=== PATIENT | female | born 1940 | race Asian ===

== ENCOUNTER 2017-10-23 03:23 | Emergency (ER) | payer OTHER ==
[~2017-10-23] VITALS: Ht 154.9 cm; Wt 67.0 kg
[~2017-10-23 03:23] MED LIST: AMLO-512 PO; ASPI-556 PO; CARV12 PO; INSU100V SQ; LORA10TA7 PO; LOSA1TAB40 PO; METF850T2 PO; ROSU40 PO; SITA100 PO
[2017-10-23] MEDS ORDERED: PROMVCC5L PO (03:30)
[2017-10-23] MEDS ORDERED: OSEL75 PO (03:30)
[2017-10-23] MEDS ORDERED: VITAD1000 PO (03:30)
[2017-10-23] MEDS ORDERED: ONDANSETRON HCL 4 MG/2 ML VIAL IVP ONE (03:45)
[2017-10-23] MEDS ORDERED: SODIUM CHLORIDE 0.9% 1,000 ML IV ONE (03:45)
[2017-10-23 04:06] LABS: BASOPHILS % (AUTO) 0.7 % (0.0-2.0); EOSINOPHILS % (AUTO) 0.6 % (1.0-6.0); HEMATOCRIT 35.2 % (36-46); HEMOGLOBIN 11.8 g/dL (12.0-16.0); LYMPHOCYTES # (AUTO) 2.6 K/uL (1.0-4.8); MEAN CORPUSCULAR HEMOGLOBIN 28.5 pg (26.0-34.0); MEAN CORPUSCULAR HGB CONC 33.4 G/dL (31.0-37.0); MEAN CORPUSCULAR VOLUME 86 fL (80-100); MONOCYTES # (AUTO) 2.4 K/uL (0.1-1.0); MONOCYTES % (AUTO) 14.1 % (2.0-9.0); NEUTROPHILS # (AUTO) 11.9 K/uL (1.8-7.7); NEUTROPHILS % (AUTO) 69.6 % (40.0-70.0); PLATELET COUNT (AUTO) 325 K/uL (150-450); RED BLOOD CELL COUNT(AUTO) 4.12 MIL/uL (4.00-5.20); RED CELL DISTRIBUTION WIDTH 13.9 % (11.5-14.5)
[2017-10-23 04:12] LABS: CALCIUM, TOTAL 9.2 mg/dL (8.8-10.5); CREATININE 1.44 mg/dL (0.60-1.30)
[2017-10-23 04:18] LABS: ALBUMIN 3.2 g/dL (3.4-5.0); BILIRUBIN,TOTAL 0.7 mg/dL (0.1-1.0)
[2017-10-23] MEDS ORDERED: IODIXANOL 320 MG/ML 100 ML VIAL ONE (04:25)
[2017-10-23] MEDS ORDERED: SODIUM CHLORIDE 0.9% 100 ML ONE (04:26)
[2017-10-23 05:19] VITALS: BP 122/62
[2017-10-23 05:39] LABS: APPEARANCE,URINE CLEAR (CLEAR); BILIRUBIN,URINE NEGATIVE (NEGATIVE); GLUCOSE, URINE (UA) NEGATIVE (NEGATIVE); KETONES,URINE NEGATIVE (NEGATIVE); LEUKOCYTE ESTERASE ,URINE NEGATIVE (NEGATIVE); NITRATE,URINE NEGATIVE (NEGATIVE); OCCULT BLOOD,URINE TRACE (NEGATIVE); PROTEIN,URINE SEE CONFIRM (NEGATIVE); UROBILINOGEN,URINE 0.2 mg/dL (<=1.0)
[2017-10-23 05:48] LABS: BACTERIA,URINE Few /HPF (None Seen); RBC,URINE 0-2 /HPF (0-2); SQUAMOUS EPITHELIAL CELL,UR Few /LPF (None Seen); SULFOSALICYLIC ACID,URINE 1+ (Negative); WBC,URINE None Seen /HPF (0-5)
[2017-10-23 14:05] LABS: GLUCOSE,POINT OF CARE 124 MG/DL (70-110)
== END 2017-10-23 06:12 | disposition home or self-care (01) ==
LOC: EMS 03:23
DX: K52.9 Noninfective gastroenteritis and colitis, unspecified (principal); I10 Essential (primary) hypertension; E11.9 Type 2 diabetes mellitus without complications; Z79.4 Long term (current) use of insulin
CPT/HCPCS: 36415; 74177; 80053; 81001; 82962; 83690; 84484; 85025; 93005; 96361; 96374; 99285; J2405; J7030; J7050; Q9967

== ENCOUNTER 2018-06-15 08:44 | Emergency (ER) | payer OTHER ==
[~2018-06-15] VITALS: Ht 157.5 cm; Wt 70.5 kg
[~2018-06-15 08:44] MED LIST changes: +METF-445 PO; -METF850T2 PO; +OSEL75 PO; +PROMVCC5L PO; +VITAD1000 PO
[2018-06-15 08:58] LABS: GLUCOSE,POINT OF CARE 298 MG/DL (70-110)
[2018-06-15] MEDS ORDERED: TraMADol HCL 50 MG TABLET PO ONE (09:45)
[2018-06-15 11:32] VITALS: BP 122/76
== END 2018-06-15 11:33 | disposition home or self-care (01) ==
LOC: EMS 08:46
DX: M25.561 Pain in right knee (principal); E11.9 Type 2 diabetes mellitus without complications; I10 Essential (primary) hypertension; Z79.4 Long term (current) use of insulin; Z79.82 Long term (current) use of aspirin; Z79.84 Long term (current) use of oral hypoglycemic drugs

== ENCOUNTER 2021-01-03 10:54 | Emergency (ER) | payer MEDICARE, MEDICAID ==
[~2021-01-03] VITALS: Ht 154.9 cm; Wt 63.6 kg
[~2021-01-03 10:54] MED LIST changes: +AMLO-258 PO; -AMLO-512 PO; +CHOL100018 PO; -VITAD1000 PO
[2021-01-03] MEDS ORDERED: LOSA25TA21 PO (11:00)
[2021-01-03] MEDS ORDERED: HYDR50TA36 PO (11:00)
[2021-01-03] MEDS ORDERED: SEMA0.25 SQ (11:00)
[2021-01-03] MEDS ORDERED: INSU100I24 SQ (11:01)
[2021-01-03] MEDS ORDERED: INSNOV SQ (11:01)
[2021-01-03 11:53] LABS: GLUCOSE,POINT OF CARE 263 MG/DL (70-110)
[2021-01-03 12:01] LABS: BASOPHILS % (AUTO) 0.7 % (0.0-2.0); EOSINOPHILS % (AUTO) 0.7 % (1.0-6.0); HEMOGLOBIN 11.1 g/dL (12.0-16.0); LYMPHOCYTES # (AUTO) 1.2 K/uL (1.0-4.8); LYMPHOCYTES % (AUTO) 10.2 % (22.0-44.0); MEAN CORPUSCULAR HGB CONC 32.6 G/dL (31.0-37.0); MEAN CORPUSCULAR VOLUME 89 fL (80-100); MONOCYTES # (AUTO) 1.2 K/uL (0.1-1.0); MONOCYTES % (AUTO) 10.9 % (2.0-9.0); NEUTROPHILS # (AUTO) 8.9 K/uL (1.8-7.7); NEUTROPHILS % (AUTO) 77.5 % (40.0-70.0); PLATELET COUNT (AUTO) 240 K/uL (150-450); RED BLOOD CELL COUNT(AUTO) 3.83 MIL/uL (4.00-5.20); RED CELL DISTRIBUTION WIDTH 13.7 % (11.5-14.5)
[2021-01-03 12:13] LABS: CALCIUM, TOTAL 8.8 mg/dL (8.8-10.5); CREATININE 1.95 mg/dL (0.60-1.30)
[2021-01-03 12:18] LABS: ALBUMIN 2.9 g/dL (3.4-5.0); BILIRUBIN,TOTAL 0.3 mg/dL (0.1-1.0); TOTAL PROTEIN, SERUM 7.1 g/dL (6.4-8.2)
[2021-01-03 13:20] VITALS: BP 143/64
== END 2021-01-03 13:31 | disposition home or self-care (01) ==
LOC: EMS 10:58
DX: E11.65 Type 2 diabetes mellitus with hyperglycemia (principal); Z79.899 Other long term (current) drug therapy
CPT/HCPCS: 80053; 82962; 84484; 85025; 99283

== ENCOUNTER 2022-12-05 14:35 | Inpatient (IN) | payer MEDICARE, OTHER ==
[~2022-12-05] VITALS: Ht 167.6 cm; Wt 91.0 kg
[~2022-12-05 14:35] MED LIST changes: +ASPI-1444 PO; -ASPI-556 PO; +BACTDSB PO; -CARV12 PO; +CARV25 PO; -CHOL100018 PO; +INSNOV SQ; +INSU100I24 SQ; -INSU100V SQ; -LORA10TA7 PO; -LOSA1TAB40 PO; -METF-445 PO; -OSEL75 PO; +PANT-31 PO; -PROMVCC5L PO; +ROSU20TA73 PO; -ROSU40 PO; +SEMA0.25 SQ; -SITA100 PO
[2022-12-05] MEDS ORDERED: SODIUM CHLORIDE 0.9% 1,000 ML IV ONE (15:30)
[2022-12-05] MEDS ORDERED: ONDANSETRON HCL 4 MG/2 ML VIAL IVP ONE (15:30)
[2022-12-05 16:24] LABS: BASOPHILS % (AUTO) 0.7 % (0.0-2.0); EOSINOPHILS % (AUTO) 1.1 % (1.0-6.0); HEMATOCRIT 39.7 % (36-46); HEMOGLOBIN 12.9 g/dL (12.0-16.0); LYMPHOCYTES # (AUTO) 1.3 K/uL (1.0-4.8); LYMPHOCYTES % (AUTO) 6.8 % (22.0-44.0); MEAN CORPUSCULAR HEMOGLOBIN 30.1 pg (26.0-34.0); MEAN CORPUSCULAR HGB CONC 32.5 G/dL (31.0-37.0); MEAN CORPUSCULAR VOLUME 92 fL (80-100); MONOCYTES # (AUTO) 0.8 K/uL (0.1-1.0); MONOCYTES % (AUTO) 4.2 % (2.0-9.0); NEUTROPHILS # (AUTO) 16.5 K/uL (1.8-7.7); RED BLOOD CELL COUNT(AUTO) 4.29 MIL/uL (4.00-5.20); RED CELL DISTRIBUTION WIDTH 14.3 % (11.5-14.5)
[2022-12-05 16:25] LABS: NEUTROPHILS % (AUTO) 87.2 % (40.0-70.0)
[2022-12-05 16:29] LABS: CALCIUM, TOTAL 8.7 mg/dL (8.8-10.5); CREATININE 2.53 mg/dL (0.60-1.30); POTASSIUM 4.4 mmol/L (3.5-5.1); PROTHROMBIN TIME 10.2 SEC (9.4-11.6)
[2022-12-05 16:30] LABS: COVID AG,FIA SOURCE NASOPHARYNGEAL
[2022-12-05 16:32] LABS: BILIRUBIN,TOTAL 0.2 mg/dL (0.1-1.0); TOTAL PROTEIN, SERUM 7.2 g/dL (6.4-8.2)
[2022-12-05 16:33] LABS: LACTIC ACID 1.7 mmol/L (0.4-2.0)
[2022-12-05] MEDS ORDERED: PANTOPRAZOLE SODIUM 40 MG/VIAL IVP ONE (17:00)
[2022-12-05 17:13] LABS: PLATELET COUNT (AUTO) 237 K/uL (150-450)
[2022-12-05] MEDS ORDERED: ONDANSETRON HCL 4 MG/2 ML VIAL IVP PRN (17:15)
[2022-12-05] MEDS ORDERED: DEXTROSE 50%-WATER 25 GM/50 ML SYRINGE IVP PRN (17:15)
[2022-12-05] MEDS ORDERED: PANTOPRAZOLE SODIUM 80 MG in SODIUM CHLORIDE 0.9% 100 ML IV SCH (17:30)
[2022-12-05] MEDS: AmLODIPine BESYLATE 10 MG TABLET PO SCH (17:50)
[2022-12-05] MEDS: PANTOPRAZOLE SODIUM 80 MG in SODIUM CHLORIDE 0.9% 100 ML IV SCH (18:00)
[2022-12-05] MEDS: CloNIDine HCL 0.1 MG TABLET PO PRN (18:28)
[2022-12-05] MEDS: DOCUSATE SODIUM 100 MG CAPSULE PO SCH (22:02)
[2022-12-05] MEDS: LOSARTAN POTASSIUM 25 MG TABLET PO SCH (22:02)
[2022-12-05] MEDS: ACETAMINOPHEN 325 MG TABLET PO PRN (22:07)
[2022-12-05 23:16] LABS: BAND NEUTROPHILS % (MANUAL) 0 % (0-5); HEMATOCRIT 33.9 % (36-46); HEMOGLOBIN 11.1 g/dL (12.0-16.0); MEAN CORPUSCULAR HEMOGLOBIN 30.4 pg (26.0-34.0); MEAN CORPUSCULAR HGB CONC 32.7 G/dL (31.0-37.0); MEAN CORPUSCULAR VOLUME 93 fL (80-100); PLATELET COUNT (AUTO) 227 K/uL (150-450); RED BLOOD CELL COUNT(AUTO) 3.65 MIL/uL (4.00-5.20); RED CELL DISTRIBUTION WIDTH 14.3 % (11.5-14.5)
[2022-12-05 23:42] LABS: EOSINOPHILS % (MANUAL) 1 % (1-6); LYMPHOCYTES % (MANUAL) 11 % (22-44); MONOCYTES % (MANUAL) 6 % (2-9); SEGMENTED NEUTROPHILS % 82 % (40-70)
[2022-12-06] MEDS: PANTOPRAZOLE SODIUM 80 MG in SODIUM CHLORIDE 0.9% 100 ML IV SCH (03:31)
[2022-12-06] MEDS: CloNIDine HCL 0.1 MG TABLET PO PRN ×2 (04:27→19:02)
[2022-12-06 09:38] VITALS: BP 185/80
[2022-12-06] MEDS: AmLODIPine BESYLATE 10 MG TABLET PO SCH (09:41)
[2022-12-06] MEDS: LOSARTAN POTASSIUM 25 MG TABLET PO SCH ×2 (09:41→19:24)
[2022-12-06] MEDS: DOCUSATE SODIUM 100 MG CAPSULE PO SCH ×2 (09:41→19:24)
[2022-12-06 10:40] LABS: BASOPHILS % (AUTO) 0.6 % (0.0-2.0); EOSINOPHILS % (AUTO) 1.6 % (1.0-6.0); HEMATOCRIT 37.2 % (36-46); HEMOGLOBIN 11.9 g/dL (12.0-16.0); LYMPHOCYTES # (AUTO) 1.2 K/uL (1.0-4.8); LYMPHOCYTES % (AUTO) 13.3 % (22.0-44.0); MEAN CORPUSCULAR HEMOGLOBIN 29.7 pg (26.0-34.0); MEAN CORPUSCULAR VOLUME 93 fL (80-100); MONOCYTES # (AUTO) 0.6 K/uL (0.1-1.0); MONOCYTES % (AUTO) 6.2 % (2.0-9.0); NEUTROPHILS # (AUTO) 7.1 K/uL (1.8-7.7); NEUTROPHILS % (AUTO) 78.3 % (40.0-70.0); PLATELET COUNT (AUTO) 247 K/uL (150-450); RED BLOOD CELL COUNT(AUTO) 4.01 MIL/uL (4.00-5.20); RED CELL DISTRIBUTION WIDTH 14.2 % (11.5-14.5)
[2022-12-06 11:36] VITALS: BP 130/69
[2022-12-06] MEDS: INSULIN LISPRO 100 UNITS/ML SQ PRN ×3 (12:04→21:40)
[2022-12-06] MEDS: ACETAMINOPHEN 325 MG TABLET PO PRN ×2 (14:29→19:24)
[2022-12-06 15:08] VITALS: BP 138/55
[2022-12-06 18:31] LABS: GLUCOMETER DEV NAME(LOC) 5S.2C; GLUCOSE,POINT OF CARE 319 MG/DL (70-110)
[2022-12-06] MEDS: PANTOPRAZOLE SODIUM 40 MG DR TABLET PO SCH (19:24)
[2022-12-06 19:43] VITALS: BP 189/86
[2022-12-06 20:37] VITALS: BP 178/84
[2022-12-06] MEDS: NITROGLYCERIN 2% (1 GM=INCH) OINTMENT PACKET TP SCH (21:51)
[2022-12-06 23:28] VITALS: BP 136/69
[2022-12-07 01:06] LABS: GLUCOMETER DEV NAME(LOC) 6N.2B; GLUCOSE,POINT OF CARE 239 MG/DL (70-110)
[2022-12-07 05:00] VITALS: BP 124/59
[2022-12-07 05:41] LABS: GLUCOMETER DEV NAME(LOC) 5N.2C; GLUCOSE,POINT OF CARE 335 MG/DL (70-110)
[2022-12-07] MEDS: INSULIN LISPRO 100 UNITS/ML SQ PRN ×2 (05:46→11:38)
[2022-12-07] MEDS: NITROGLYCERIN 2% (1 GM=INCH) OINTMENT PACKET TP SCH (06:00)
[2022-12-07 06:46] LABS: GLUCOMETER DEV NAME(LOC) 6N.1; GLUCOSE,POINT OF CARE 187 MG/DL (70-110)
[2022-12-07 06:51] LABS: BASOPHILS % (AUTO) 1.4 % (0.0-2.0); EOSINOPHILS % (AUTO) 3.9 % (1.0-6.0); HEMOGLOBIN 11.4 g/dL (12.0-16.0); LYMPHOCYTES # (AUTO) 1.5 K/uL (1.0-4.8); LYMPHOCYTES % (AUTO) 24.8 % (22.0-44.0); MEAN CORPUSCULAR HEMOGLOBIN 30.9 pg (26.0-34.0); MEAN CORPUSCULAR HGB CONC 33.7 G/dL (31.0-37.0); MEAN CORPUSCULAR VOLUME 92 fL (80-100); MONOCYTES # (AUTO) 0.5 K/uL (0.1-1.0); MONOCYTES % (AUTO) 8.1 % (2.0-9.0); NEUTROPHILS # (AUTO) 3.7 K/uL (1.8-7.7); NEUTROPHILS % (AUTO) 61.8 % (40.0-70.0); PLATELET COUNT (AUTO) 222 K/uL (150-450); RED CELL DISTRIBUTION WIDTH 13.7 % (11.5-14.5)
[2022-12-07 07:06] LABS: ALBUMIN 2.5 g/dL (3.4-5.0); BILIRUBIN,TOTAL 0.2 mg/dL (0.1-1.0); CALCIUM, TOTAL 8.2 mg/dL (8.8-10.5); CREATININE 2.81 mg/dL (0.60-1.30); POTASSIUM 4.4 mmol/L (3.5-5.1); TOTAL PROTEIN, SERUM 6.1 g/dL (6.4-8.2)
[2022-12-07] MEDS: LOSARTAN POTASSIUM 25 MG TABLET PO SCH (08:07)
[2022-12-07] MEDS: DOCUSATE SODIUM 100 MG CAPSULE PO SCH (08:07)
[2022-12-07] MEDS: PANTOPRAZOLE SODIUM 40 MG DR TABLET PO SCH (08:07)
[2022-12-07] MEDS: AmLODIPine BESYLATE 10 MG TABLET PO SCH (08:07)
[2022-12-07] MEDS ORDERED: ASPIRIN 81 MG CHEWABLE TABLET PO SCH (09:00)
[2022-12-07] MEDS ORDERED: LOSARTAN POTASSIUM 50 MG TABLET PO SCH (09:00)
[2022-12-07 09:19] VITALS: BP 132/59
[2022-12-07 12:26] LABS: GLUCOMETER DEV NAME(LOC) 6N.1; GLUCOSE,POINT OF CARE 299 MG/DL (70-110)
== END 2022-12-07 14:30 | disposition home or self-care (01) | DRG 378 ==
LOC: EMS 14:45 → 5S 12-06 06:13 → 6S 12-06 18:45
PROVIDERS: ADMIT Internal Medicine; ATTEND Internal Medicine
DX: K92.2 Gastrointestinal hemorrhage, unspecified (principal); N17.9 Acute kidney failure, unspecified; K31.A0 Gastric intestinal metaplasia, unspecified; N18.9 Chronic kidney disease, unspecified; Z20.822 Contact with and (suspected) exposure to COVID-19; I12.9 Hypertensive chronic kidney disease with stage 1 through stage 4 chronic kidney disease, or unspecified chronic kidney disease; E11.22 Type 2 diabetes mellitus with diabetic chronic kidney disease; D72.829 Elevated white blood cell count, unspecified; M19.90 Unspecified osteoarthritis, unspecified site; Z79.82 Long term (current) use of aspirin; Z79.899 Other long term (current) drug therapy; Z79.4 Long term (current) use of insulin
CPT/HCPCS: 70450; 71045; 80053; 82271; 82962; 83605; 83690; 84484; 85007; 85025; 85027; 85610; 86850; 86900; 86901; 93005; 97166; 97535; 99291; C9113; J2405; J7050; 36415-L1; 36415-TC

== ENCOUNTER 2023-02-04 11:05 | Emergency (ER) | payer MEDICARE, OTHER ==
[~2023-02-04] VITALS: Ht 152.4 cm; Wt 71.9 kg
[2023-02-04 11:15] VITALS: TEMP 98.3
[2023-02-04] MEDS ORDERED: LOSA-381 PO (11:21)
[2023-02-04] MEDS ORDERED: ROSU5TAB PO (11:25)
[2023-02-04] MEDS ORDERED: LOSA1TAB42 PO (11:25)
[2023-02-04] MEDS ORDERED: SEMA1PEN3 SQ (11:25)
[2023-02-04] MEDS ORDERED: AMLO5TAB66 PO (11:25)
[2023-02-04] MEDS ORDERED: LOPERAMIDE HCL 2 MG CAPSULE PO ONE (11:30)
[2023-02-04] MEDS ORDERED: ONDANSETRON HCL 4 MG/2 ML VIAL IVP ONE (11:30)
[2023-02-04] MEDS ORDERED: SODIUM CHLORIDE 0.9% 1,000 ML IV ONE (11:30)
[2023-02-04 12:28] LABS: BASOPHILS % (AUTO) 0.6 % (0.0-2.0); EOSINOPHILS % (AUTO) 0.7 % (1.0-6.0); HEMATOCRIT 40.6 % (36-46); HEMOGLOBIN 13.1 g/dL (12.0-16.0); LYMPHOCYTES # (AUTO) 1.2 K/uL (1.0-4.8); LYMPHOCYTES % (AUTO) 8.7 % (22.0-44.0); MEAN CORPUSCULAR HEMOGLOBIN 29.6 pg (26.0-34.0); MEAN CORPUSCULAR HGB CONC 32.2 G/dL (31.0-37.0); MEAN CORPUSCULAR VOLUME 92 fL (80-100); MONOCYTES # (AUTO) 0.5 K/uL (0.1-1.0); MONOCYTES % (AUTO) 3.8 % (2.0-9.0); NEUTROPHILS # (AUTO) 11.7 K/uL (1.8-7.7); PLATELET COUNT (AUTO) 303 K/uL (150-450); RED BLOOD CELL COUNT(AUTO) 4.42 MIL/uL (4.00-5.20); RED CELL DISTRIBUTION WIDTH 13.8 % (11.5-14.5)
[2023-02-04 12:29] LABS: CALCIUM, TOTAL 8.9 mg/dL (8.8-10.5); CREATININE 2.87 mg/dL (0.60-1.30); NEUTROPHILS % (AUTO) 86.2 % (40.0-70.0); POTASSIUM 4.7 mmol/L (3.5-5.1)
[2023-02-04 12:35] LABS: ALBUMIN 3.4 g/dL (3.4-5.0); BILIRUBIN,TOTAL 0.3 mg/dL (0.1-1.0); TOTAL PROTEIN, SERUM 8.3 g/dL (6.4-8.2)
[2023-02-04 13:10] VITALS: BP 185/88; PULSE 74; RESP 18
[2023-02-04] MEDS ORDERED: LOPE-232 PO (13:20)
[2023-02-04] MEDS ORDERED: ONDA-104 PO (13:20)
== END 2023-02-04 13:56 | disposition home or self-care (01) ==
LOC: EMS 11:16
DX: N28.9 Disorder of kidney and ureter, unspecified (principal); R11.2 Nausea with vomiting, unspecified; R19.7 Diarrhea, unspecified; E11.9 Type 2 diabetes mellitus without complications; I10 Essential (primary) hypertension
CPT/HCPCS: 99283; 96374; 96361; 80053; 85025; 36415; J2405; J7030